=== PATIENT | male | born 1995 | race Caucasian/White ===

== ENCOUNTER 2024-05-20 10:43 | Emergency (ER) | payer MEDICAID ==
[~2024-05-20] VITALS: Ht 172.7 cm; Wt 120.0 kg
[2024-05-20 10:48] VITALS: TEMP 99; O2SAT 99
[2024-05-20 12:20] VITALS: BP 112/52; PULSE 82; RESP 14; O2SAT 99
[2024-05-20] MEDS: ACETAMINOPHEN 500MG TABLET PO NR (12:24)
== END 2024-05-20 13:01 | disposition home or self-care (01) ==
LOC: ER 11:56
DX: R56.9 Unspecified convulsions (principal); I10 Essential (primary) hypertension; Z79.899 Other long term (current) drug therapy; Z91.09 Other allergy status, other than to drugs and biological substances
CPT/HCPCS: 81025; 99284